=== PATIENT | male | born 1985 | race Caucasian/White ===

== ENCOUNTER 2016-12-21 12:21 | Emergency (ER) | payer MEDICARE ==
[2016-12-21 12:49] LABS: APPEARANCE CLEAR (CLEAR); BILIRUBIN NEGATIVE (NEGATIVE); COLOR YELLOW (YELLOW); GLUCOSE NEGATIVE (NEGATIVE); KETONE NEGATIVE (NEGATIVE); LEUKOCYTE ESTERASE NEGATIVE (NEGATIVE); NITRITE NEGATIVE (NEGATIVE); PROTEIN NEGATIVE (NEGATIVE); UROBILINOGEN NORMAL (NORMAL)
[2016-12-21 13:02] LABS: BASOPHILS 0.5 % (0-2); EOSINOPHILS 4.5 % (0-7); HEMOGLOBIN 16.6 g/dL (13.5-17.5); IMMATURE GRANULOCYTES 0.3 % (0-5); MCH 30.1 pg (26.0-34.0); MCHC 33.9 g/dL (31.0-37.0); MCV 88.9 fL (80.0-100.0); MEAN PLATELET VOLUME 11.4 fL (7.4-10.4); MONOCYTES 5.1 % (2-11); NEUTROPHILS 71.6 % (40-80); PLATELET COUNT 246 10x3/uL (130-400); RBC 5.51 10x6/uL (4.20-6.10); RDW 12.4 % (11.5-14.5); WBC 7.9 10x3/uL (4.8-10.8)
[2016-12-21 13:04] LABS: UDS - AMPHET NEGATIVE QUAL (NEGATIVE); UDS - BARB NEGATIVE QUAL (NEGATIVE); UDS - BENZO POSITIVE QUAL (NEGATIVE); UDS - COCAINE NEGATIVE QUAL (NEGATIVE); UDS - METH NEGATIVE QUAL (NEGATIVE); UDS - OPIATE NEGATIVE QUAL (NEGATIVE); UDS - PCP NEGATIVE QUAL (NEGATIVE); UDS - THC NEGATIVE QUAL (NEGATIVE)
== END 2016-12-21 14:01 | disposition left against medical advice (07) ==
LOC: D.ER 12:21
PROVIDERS: Physician Assistant Medical
DX: F41.9 Anxiety disorder, unspecified (principal); F31.9 Bipolar disorder, unspecified; F25.9 Schizoaffective disorder, unspecified

== ENCOUNTER 2017-01-03 22:25 | Emergency (ER) | payer MEDICARE ==
[2017-01-03 23:33] LABS: BASOPHILS 0.6 % (0-2); EOSINOPHILS 2.5 % (0-7); HEMATOCRIT 48.4 % (42.0-54.0); HEMOGLOBIN 16.6 g/dL (13.5-17.5); IMMATURE GRANULOCYTES 0.3 % (0-5); LYMPHOCYTES 15.4 % (15-50); MCH 30.1 pg (26.0-34.0); MCHC 34.3 g/dL (31.0-37.0); MCV 87.7 fL (80.0-100.0); MEAN PLATELET VOLUME 11.1 fL (7.4-10.4); MONOCYTES 6.1 % (2-11); NEUTROPHILS 75.1 % (40-80); PLATELET COUNT 272 10x3/uL (130-400); RBC 5.52 10x6/uL (4.20-6.10); RDW 12.5 % (11.5-14.5); WBC 11.9 10x3/uL (4.8-10.8)
[2017-01-03 23:47] LABS: ALBUMIN 4.7 g/dL (3.4-5.0); ALKALINE PHOSPHATASE 84 U/L (46-116); ALT (SGPT) 132 U/L (10-68); BILIRUBIN - TOTAL 0.89 mg/dL (0.2-1.3); CALC OSMOLALITY 283 mosm/kg (275-300); CALCIUM 10.1 mg/dL (8.5-10.1); CARBON DIOXIDE 30.3 mmol/L (21.0-32.0); CHLORIDE - SERUM 104 mmol/L (98-107); GLUCOSE 98 mg/dL (74-106); POTASSIUM - SERUM 4.2 mmol/L (3.5-5.1); PROTEIN - SERUM 8.8 g/dL (6.4-8.2); SODIUM 142 mmol/L (136-145); UREA NITROGEN 14 mg/dL (7-18); eGFR NON AFRICAN AMERICAN > 90 mL/min (90-120)
[2017-01-04 00:51] LABS: APPEARANCE CLEAR (CLEAR); BILIRUBIN NEGATIVE (NEGATIVE); COLOR DK YELLOW (YELLOW); GLUCOSE NEGATIVE (NEGATIVE); KETONE MODERATE mg/dL (NEGATIVE); LEUKOCYTE ESTERASE NEGATIVE (NEGATIVE); NITRITE NEGATIVE (NEGATIVE); PROTEIN NEGATIVE (NEGATIVE)
[2017-01-04 00:57] LABS: UDS - AMPHET POSITIVE QUAL (NEGATIVE); UDS - BARB NEGATIVE QUAL (NEGATIVE); UDS - BENZO NEGATIVE QUAL (NEGATIVE); UDS - COCAINE NEGATIVE QUAL (NEGATIVE); UDS - METH NEGATIVE QUAL (NEGATIVE); UDS - OPIATE NEGATIVE QUAL (NEGATIVE); UDS - PCP NEGATIVE QUAL (NEGATIVE); UDS - THC NEGATIVE QUAL (NEGATIVE)
== END 2017-01-04 05:05 | disposition home or self-care (01) ==
LOC: D.ER 22:25
PROVIDERS: Family Medicine
DX: F41.9 Anxiety disorder, unspecified (principal); F31.89 Other bipolar disorder; B19.20 Unspecified viral hepatitis C without hepatic coma; F25.9 Schizoaffective disorder, unspecified

== ENCOUNTER 2017-01-24 14:45 | Emergency (ER) | payer MEDICARE | END 2017-01-24 15:32 | disposition left against medical advice (07) | LOC: D.ER 14:45 | DX: F41.0 Panic disorder [episodic paroxysmal anxiety] (principal) ==

== ENCOUNTER 2017-04-17 01:05 | Emergency (ER) | payer MEDICARE | END 2017-04-17 02:48 | disposition home or self-care (01) | LOC: D.ER 01:05 | DX: Z76.0 Encounter for issue of repeat prescription (principal); F31.89 Other bipolar disorder; B19.20 Unspecified viral hepatitis C without hepatic coma; F25.9 Schizoaffective disorder, unspecified ==

== ENCOUNTER 2017-05-05 10:42 | Emergency (ER) | payer MEDICARE | END 2017-05-05 12:02 | disposition home or self-care (01) | LOC: D.ER 10:42 | DX: Z76.0 Encounter for issue of repeat prescription (principal); F17.200 Nicotine dependence, unspecified, uncomplicated ==

== ENCOUNTER 2017-05-17 10:41 | Emergency (ER) | payer MEDICARE | END 2017-05-17 12:15 | disposition home or self-care (01) | LOC: D.ER 10:41 | DX: F15.10 Other stimulant abuse, uncomplicated (principal); F31.89 Other bipolar disorder; Z91.14 Patient's other noncompliance with medication regimen; F17.200 Nicotine dependence, unspecified, uncomplicated ==